=== PATIENT | female | born 1965 | race Caucasian/White ===

== ENCOUNTER 2024-09-24 07:07 | Emergency (ER) | payer OTHER ==
[~2024-09-24] VITALS: Ht 177.8 cm; Wt 153.3 kg
[2024-09-24 07:20] VITALS: PULSE 89; RESP 18; TEMP 97.9; O2SAT 98
[2024-09-24] MEDS ORDERED: ERYTHROMYCIN 2%30 GM OP (07:44)
[2024-09-24] MEDS ORDERED: DOXYCYCLINE HY100 MG PO (07:45)
== END 2024-09-24 07:52 | disposition home or self-care (01) ==
LOC: FSED 07:10
DX: L03.213 Periorbital cellulitis (principal); H00.13 Chalazion right eye, unspecified eyelid; I10 Essential (primary) hypertension; E11.9 Type 2 diabetes mellitus without complications; I50.9 Heart failure, unspecified; E03.9 Hypothyroidism, unspecified; K21.9 Gastro-esophageal reflux disease without esophagitis
CPT/HCPCS: 99282